=== PATIENT | male | born 1995 | race Caucasian/White ===

== ENCOUNTER 2020-01-04 13:33 | Emergency (ER) | payer MEDICAID, SELFPAY ==
[2020-01-04 13:33] VITALS: BP 122/66; PULSE 101; RESP 20; TEMP 36.6; O2SAT 96; BMI 24.4
[2020-01-04 14:03] VITALS: BP 125/85; PULSE 80; RESP 20; TEMP 36.8; O2SAT 98
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
== END 2020-01-04 14:04 ==
LOC: ER 13:54
PROVIDERS: Emergency Provider Family Medicine
DX: Z00.8 Encounter for other general examination (principal)
CPT/HCPCS: 99282